=== PATIENT | female | born 1985 | race Caucasian/White ===

== ENCOUNTER → 2018-01-11 | Outpatient (CLI) | payer BC ==
[2018-01-11 13:30] LABS: ABSOLUTE RETIC # 25 10e9/L (24-90); BASOPHILS % (AUTO) 1 % (0-10); EOSINOPHILS % (AUTO) 1 % (0-10); HEMATOCRIT 40 % (35-52); HEMOGLOBIN 13.1 G/DL (11.5-16.0); LYMPHOCYTES # (AUTO) 1.6 X 10^3 (1.0-4.0); LYMPHOCYTES % (AUTO) 29 % (12-44); MEAN CORPUSCULAR HEMOGLOBIN 31 PG (25-34); MEAN CORPUSCULAR HGB CONC 33 G/DL (32-36); MEAN CORPUSCULAR VOLUME 93 FL (80-99); MEAN PLATELET VOLUME 10.3 FL (7.4-10.4); MONOCYTES # (AUTO) 0.4 X 10^3 (0.0-1.0); MONOCYTES % (AUTO) 7 % (0-12); NEUTROPHILS # (AUTO) 3.7 X 10^3 (1.8-7.8); NEUTROPHILS % (AUTO) 64 % (42-75); PLATELET COUNT 220 10^3/uL (130-400); RED BLOOD COUNT 4.26 10^6/uL (4.35-5.85); RED CELL DISTRIBUTION WIDTH 12.3 % (10.0-14.5); RETICULOCYTE % 0.58 % (0.50-2.40); WHITE BLOOD COUNT 5.7 10^3/uL (4.3-11.0)
[2018-01-11 14:08] LABS: BAND NEUTROPHILS 2 %; NEUTROPHILS % (MANUAL) 64 %
[2018-01-11 14:09] LABS: BASOPHILS % (MANUAL) 0 %; EOSINOPHILS % (MANUAL) 3 %; LYMPHOCYTES % (MANUAL) 24 %; MONOCYTES % (MANUAL) 5 %; PLATELET CLUMPS OCCASIONAL; REACTIVE LYMPHOCYTES 2 %
[2018-01-11 14:10] LABS: RBC MORPH NORMAL
== END ==
LOC: LAB 13:20
PROVIDERS: ATTEND Family Medicine
DX: D72.819 Decreased white blood cell count, unspecified (principal)
CPT/HCPCS: 36415; 85007; 85025; 85027; 85045

== ENCOUNTER → 2021-05-03 | Outpatient (CLI) | payer BC ==
--- NOTE | 2021-05-05 08:41 | Diagnostic Imaging Report ---
INDICATION: survey. TECHNIQUE: Multiple real-time grayscale images were obtained over the gravid uterus. COMPARISON: None FINDINGS: There is a single live fetus in the cephalic presentation. heart rate was recorded at 156 bpm. Placenta is anterior. Amniotic fluid volume is normal. Cervical length is 3.6 cm. survey shows kidneys, bladder and stomach to be unremarkable. brain is unremarkable. There is a four-chamber heart. There is a three-vessel cord with normal insertion. spine is unremarkable. Biometrical measurements are as follows: Biparietal 4.66 cm, age 20 weeks 1 days. Head circumference 17.41 cm, age 20 weeks 0 days. Abdominal circumference 14.52 cm, age 19 weeks 6 days. Femur length 3.09 cm, age 19 weeks 5 days. Sonographic estimate age: 20 weeks 0 days. Sonographic estimated date of delivery: 09/20/2021. Estimated Weight: 311 gm (+/- 45 gm). LMP percentile: 32%. heart rate: 156 beats per minute. number: 1 of 1. IMPRESSION: Single live IUP of 20 weeks 0 days gestational age. Estimated date of confinement sonographically is 09/20/2021. Dictated by: Dictated on workstation # [id number]
== END ==
LOC: RAD 12:00 → MERGE 12:00
PROVIDERS: ATTEND Nurse Practitioner Women's Health
DX: Z34.02 Encounter for supervision of normal first pregnancy, second trimester (principal)
CPT/HCPCS: 76805

== ENCOUNTER 2021-09-18 14:15 | Inpatient (IN) | payer BC ==
[2021-09-18] VITALS (8 sets, daily range): BP systolic 94–121; BP diastolic 50–77
[~2021-09-18] VITALS: Ht 162.6 cm; Wt 70.0 kg
[2021-09-18] MEDS ORDERED: NS IV 1000 ML 1,000 ML ONE (19:32)
[2021-09-18] MEDS ORDERED: LIDOCAINE/EPI 2% 1:200,00 (XYLOCAINE) 10 ML VIAL INJ PRN (20:00)
[2021-09-18] MEDS ORDERED: MINERAL OIL 30 ML TOP PRN (20:00)
[2021-09-18] MEDS ORDERED: CATHETER FLUSH 10 ML SYR IV PRN (20:00)
[2021-09-18] MEDS ORDERED: NS IV 1000 ML 1,000 ML IV SCH (20:00)
[2021-09-18] MEDS ORDERED: TERBUTALINE INJ 1 MG/ML (BRETHINE) AMP SC PRN (20:00)
[2021-09-18 20:07] LABS: BILIRUBIN,URINE NEGATIVE (NEGATIVE); CLARITY,URINE CLEAR; COLOR,URINE YELLOW; GLUCOSE, URINE (UA) NEGATIVE (NEGATIVE); KETONES,URINE NEGATIVE (NEGATIVE); LEUKOCYTE ESTERASE ,URINE NEGATIVE (NEGATIVE); NITRITE,URINE NEGATIVE (NEGATIVE); PROTEIN,URINE NEGATIVE (NEGATIVE)
[2021-09-18 20:08] LABS: BASOPHILS % (AUTO) 0 % (0-10); EOSINOPHILS # (AUTO) 0.1 10^3/uL (0.0-0.3); EOSINOPHILS % (AUTO) 1 % (0-10); HEMATOCRIT 35 % (35-52); HEMOGLOBIN 11.7 g/dL (11.5-16.0); LYMPHOCYTES % (AUTO) 25 % (12-44); MEAN CORPUSCULAR HEMOGLOBIN 32 pg (25-34); MEAN CORPUSCULAR HGB CONC 34 g/dL (32-36); MEAN CORPUSCULAR VOLUME 96 fL (80-99); MEAN PLATELET VOLUME 11.9 fL (9.0-12.2); MONOCYTES # (AUTO) 0.6 10^3/uL (0.0-1.0); MONOCYTES % (AUTO) 7 % (0-12); NEUTROPHILS # (AUTO) 5.5 10^3/uL (1.8-7.8); NEUTROPHILS % (AUTO) 67 % (42-75); PLATELET COUNT 208 10^3/uL (130-400); WHITE BLOOD COUNT 8.3 10^3/uL (4.3-11.0)
[2021-09-18 20:16] LABS: BACTERIA,URINE FEW /HPF; WBC,URINE 0-2 /HPF
[2021-09-18] MEDS: D5 LR IV SOLUTION 1,000 ML IV SCH (20:25)
[2021-09-19] VITALS (57 sets, daily range): BP systolic 83–152; BP diastolic 49–75
[2021-09-19] MEDS ORDERED: AMPICILLIN FOR IV USE 2,000 MG in NS (IVPB) 50 ML IV ONE ×2
[2021-09-19] MEDS: AMPICILLIN FOR IV USE 1,000 MG in NS (IVPB) 50 ML IV SCH ×3 (04:11→11:59)
[2021-09-19] MEDS: D5 LR IV SOLUTION 1,000 ML IV SCH ×2 (04:16→10:36)
[2021-09-19] MEDS ORDERED: LACTATED RINGERS 1,000 ML IV ONE (07:30)
[2021-09-19] MEDS ORDERED: HYDROmorphone 2 MG/ML VIAL (DILAUDID) IV ONE (07:45)
[2021-09-19] MEDS ORDERED: fentaNYL 2 mcg/ml BUPIVA 0.125 100 ML ONE (07:57)
[2021-09-19] MEDS ORDERED: fentaNYL INJ 100 MCG/2 ML AMP ONE (08:47)
[2021-09-19] MEDS ORDERED: BUPIVACAINE 0.25% 30 ML (SENSORCAINE) VIAL ONE (08:47)
--- NOTE | 2021-09-19 09:07 | History & Physical-OB ---
OB - Chief Complaint & HPI Date/Time Date of Admission: Date of Admission: Sep 18, 2021 at 19:06 Date seen by a Provider: Sep 19, 2021 Time Seen by a Provider: 08:00 Chief Complaint/History OB-Reason for Admission/Chief: Induction of Labor Hx : 1 Hx Para: 0 Expected Date of Delivery: Sep 20, 2021 Gestational Age in Weeks: 39 Gestational Age in Days: 6 Indication for induction: maternal discomfort Admission Nurse Assessment Rev: Yes History of Labs O pos Antibody neg RI RPR NR HBsAg NR HIV NR GC neg GBS pos Allergies and Home Medications Allergies Coded Allergies: No Known Drug Allergies (Unverified , 09/18/21) Patient Home Medication List Home Medication List Reviewed: Yes OB - History Hx of Present Care: Yes Ultrasounds: Normal mid trimester US Obstetrical Complications: None Medical Complications: None Patient Past Medical History n/a Immunizations COVID19 Vaccine [place]/Woman: Moderna OB - Admission Exam Physical Exam Vitals: Vital Signs 09/19/21 04:07 Temp 36.5 Pulse 53 Resp 18 B/P (MAP) 94/50 (65) Pulse Ox 98 O2 Delivery Room Air HEENT: NCAT Heart: Rhythm Normal Lungs: Clear Abdomen: Gravid Extremities: Normal Reflexes: Normal Cervical Dilatation: 1cm Effacement: 100% Station: 0 Membranes: Intact Heart Rate: 130's Accelerations: Accelerations Present Decelerations: No Decelerations Short Term Variability: Present Oriental Medicine Practitioner Variability: Average (6-25) Contractions on Admission: 6-10 Minutes Apart Intensity: Mild [place] Scoring Tool (Modified) Dilation (cm): 1-2cm (1) Effacement (%): 80-100% (3) Descent/Station: -1,0 (2) Cervix Consistency: Soft (2) Cervix Position: Anterior (2) Subtract 1 point for: Nulliparity (-1) Greenfield Score: 9 Labs Laboratory Tests Test 09/18/21 19:25 09/18/21 20:03 Range/Units White Blood Count 8.3 4.3-11.0 10^3/uL Red Blood Count 3.61 L 3.80-5.11 10^6/uL Hemoglobin 11.7 11.5-16.0 g/dL Hematocrit 35 35-52 % Mean Corpuscular Volume 96 80-99 fL Mean Corpuscular Hemoglobin 32 25-34 pg Mean Corpuscular Hemoglobin Concent 34 32-36 g/dL Red Cell Distribution Width 12.7 10.0-14.5 % Platelet Count 208 130-400 10^3/uL Mean Platelet Volume 11.9 9.0-12.2 fL Immature Granulocyte % (Auto) 1 % Neutrophils (%) (Auto) 67 42-75 % Lymphocytes (%) (Auto) 25 12-44 % Monocytes (%) (Auto) 7 0-12 % Eosinophils (%) (Auto) 1 0-10 % Basophils (%) (Auto) 0 0-10 % Neutrophils # (Auto) 5.5 1.8-7.8 10^3/uL Lymphocytes # (Auto) 2.0 1.0-4.0 10^3/uL Monocytes # (Auto) 0.6 0.0-1.0 10^3/uL Eosinophils # (Auto) 0.1 0.0-0.3 10^3/uL Basophils # (Auto) 0.0 0.0-0.1 10^3/uL Immature Granulocyte # (Auto) 0.0 0.0-0.1 10^3/uL Urine Color YELLOW Urine Clarity CLEAR Urine pH 7.0 5-9 Urine Specific [place] 1.020 1.016-1.022 Urine Protein NEGATIVE NEGATIVE Urine Glucose (UA) NEGATIVE NEGATIVE Urine Ketones NEGATIVE NEGATIVE Urine Nitrite NEGATIVE NEGATIVE Urine Bilirubin NEGATIVE NEGATIVE Urine Urobilinogen 0.2 < = 1.0 MG/DL Urine Leukocyte Esterase NEGATIVE NEGATIVE Urine RBC (Auto) NEGATIVE NEGATIVE Urine RBC NONE /HPF Urine WBC 0-2 /HPF Urine Squamous Epithelial Cells NONE /HPF Urine Renal Epithelial Cells NONE /HPF Urine Crystals NONE /LPF Urine Bacteria FEW H /HPF Urine Casts NONE /LPF Urine Mucus NEGATIVE /LPF Urine Culture Indicated NO OB - Assessment/Plan/Diagnosis Assessment Assessment: induction of labor Admission Dx 36 yo @ 39 weeks AMA GBS pos Admission Status: Inpatient Order (span 2 midnights) Reason for Inpatient Admission: IOL at 39 weeks Plan Plan: Induction Induction Method: per Misoprostol Protocol JANA PICHARDO DO Sep 19, 2021 09:07
[2021-09-19] MEDS ORDERED: ONDANSETRON 4 MG/2 ML (SDV) Z0FRAN IV PRN (09:45)
[2021-09-19] MEDS ORDERED: diphenhydrAMINE 50 MG/ML INJ (BENADRYL) IV PRN (09:45)
[2021-09-19] MEDS ORDERED: METOCLOPRAMIDE INJ 10 MG/2 ML (REGLAN) IV PRN (09:45)
[2021-09-19] MEDS ORDERED: NALOXONE 0.4 MG/ML 1 ML (NARCAN) VIAL IV PRN ×3 (09:45→14:30)
[2021-09-19] MEDS ORDERED: LACTATED RINGERS 1,000 ML IV SCH (09:45)
[2021-09-19] MEDS ORDERED: EPIDURAL (fentaNYL 2 MCG/ML BUPIVA 0.125%)100 ML BAG EPI PRN (09:45)
[2021-09-19] MEDS ORDERED: OXYTOCIN PRE-MIX DRIP 500 ML IV ONE ×2 (12:49→14:37)
[2021-09-19] MEDS ORDERED: MEASLES,MUMPS,RUBELLA 1 EA INJ SQ ONE (14:30)
[2021-09-19] MEDS ORDERED: TETANUS,DIPTH,PERTUSS P/F (BOOSTRIX) 0.5 ML VIAL IM ONE (14:30)
[2021-09-19] MEDS ORDERED: HYDROcodone/APAP 5 MG/325 MG (LORTAB) TAB PO PRN (14:30)
--- NOTE | 2021-09-19 14:30 | OB Labor & Delivery Record ---
L&D History Date of Service Date of Service: Sep 19, 2021 History Expected Date of Delivery: Sep 20, 2021 Gestational Age in Weeks: 39 Hx : 1 Hx Para: 0 Complications Events: Routine care Operative Indications (Cesarea: N/A-Vaginal Delivery Intrapartal Events: None, Ineffective Pushing L&D Stage1 Stage One Onset of Labor - Date: Sep 19, 2021 Monitors and Tracing Monitor Mode: External Heart Rate: 140 Monitor Accelerations: Uniform Monitor Decelerations: Variable Station: 0 Alf Variability: Average (6-10) Short Term Variability: Present Presentation: Vertex Vital Signs VS - Last 72 Hours, by Label 09/18/21 09/18/21 09/18/21 09/18/21 19:26 19:26 20:37 21:07 Temp 36.3 36.3 Pulse 71 71 70 63 Resp 18 18 18 18 B/P (MAP) 112/64 (80) 114/58 (76) 116/64 (81) Pulse Ox 98 98 O2 Delivery Room Air Room Air Room Air Room Air 09/18/21 09/18/21 09/18/21 09/18/21 21:37 22:08 22:38 23:07 Pulse 72 56 57 68 Resp 18 18 18 18 B/P (MAP) 114/60 (78) 115/77 (90) 94/50 (65) 98/54 (69) O2 Delivery Room Air Room Air Room Air Room Air 09/18/21 09/19/21 09/19/21 09/19/21 23:37 00:07 00:37 01:07 Temp 36.4 Pulse 54 59 56 51 Resp 18 18 18 18 B/P (MAP) 121/72 (88) 112/70 (84) 96/55 (69) 103/59 (74) Pulse Ox 99 O2 Delivery Room Air Room Air Room Air Room Air 09/19/21 09/19/21 09/19/21 09/19/21 01:38 02:07 02:37 03:08 Pulse 51 47 52 55 Resp 18 18 18 18 B/P (MAP) 94/50 (65) 113/64 (80) 108/70 (83) 103/57 (72) O2 Delivery Room Air Room Air Room Air Room Air 09/19/21 09/19/21 09/19/2109/19/22 03:37 04:07 07:07 07:30 Temp 36.5 36.7 Pulse 50 53 60 70 Resp 18 18 18 18 B/P (MAP) 105/69 (81) 94/50 (65) 102/62 (75) Pulse Ox 98 97 O2 Delivery Room Air Room Air Room Air Room Air 09/19/21 09/19/21 09/19/21 09/19/21 07:38 08:07 08:36 09:00 Pulse 58 55 60 58 Resp 18 18 18 18 B/P (MAP) 128/63 (84) 106/55 (72) 111/57 (75) 152/75 (100) Pulse Ox 97 100 100 99 O2 Delivery Room Air Room Air Room Air Room Air Rupture of Membranes Spontaneous Ruture of Membrane: No Amniotic Membrane Rupture Time: 717 Amniotic Membrane Fluid Desc.: Clear Vaginal Bleeding Description: Normal Show Induction/Anesthesia Epidural Cath Placement - Time: 0900 Progress/Notes Patient admitted last night for elective 39 week IOL. She received misoprostol 3x doses overnight 100mcg loading and 50 q 4. She had AROM performed this AM. Followed by a regular contraction pattern. She received an epidural shortly after, and progressed with no further augmentation to complete and + 2 station. L&D Stage2 Stage Two Stage II Date: Sep 19, 2021 Monitors and Tracing Monitor Mode: External Heart Rate: 140 Monitor Accelerations: Uniform Monitor Decelerations: Variable Cottonseed Meat Presser Variability: Average (6-10) Short Term Variability: Present Position: Right Occiput Anterior Presentation: Vertex Signs of Distress by FHT Signs of Distress Due to recurrent deep heart rate decelerations, and ineffective pushing due to complete block with epidural vacuum extraction was implemented. Kiwi vacuum placed on saginal suture line at flexion point. With next maternal push gentle decent and extension are performed over RML episiotomy. Where as the head is delivered and suction is released. The remainder of the delivery was unremarkable. Cord Descript/Complications Cord Vessel Description: 3 Vessels Delivery Type Delivery Method: Low Vacuum Extraction Anterior Shoulder: Left Episiotomy/Perineal Laceration Laceraction(s)/Extensions: Yes Episiotomy Description: Right Mediolateral Degree (describe repair) RML repaired using 3-0 rapide and 2-0 vicryl suture in usual fashion. Condition of Infant Delivery 1 minute Comment: 8 5 minute Comment: 9 Notes Live male infant weight pending. Condition of Condition of Infant: Living Exam: No Observed Abnormalities Resuscitation Resuscitation: N/A - Spontaneous Resp L&D Stage3 Stage Three Stage III Date: Sep 19, 2021 Pictocin Pitocin Administration Comment: 30 mu wide open after delivery of placenta Placenta Delivery Placenta Delivery: Spontaneous Delivery Summary Summary Estimated blood loss (mL): 300 Attending at delivery: Jana Pichardo DO Condition of Delivery Examined: Cervix Examined, Uterus Explored Post Hemorrhage: No Condition of Mother stable Condition of Infant (s) stable JANA PICHARDO DO Sep 19, 2021 14:30
[2021-09-19] MEDS: OXYTOCIN PRE-MIX DRIP 500 ML IV SCH ×2 (14:40→23:19)
[2021-09-19] MEDS: IBUPROFEN 600 MG (MOTRIN) TAB PO SCH ×2 (15:13→21:27)
[2021-09-19] MEDS: WITCH HAZEL(TUCKS) 40 EA JAR TOP PRN ×2 (15:13→15:31)
[2021-09-19] MEDS: BENZOCAINE/MENTHOL (DERMOPLAST) 56 ML CAN TP PRN ×2 (15:14→15:32)
[2021-09-19] MEDS: DIBUCAINE 1% OINTMENT 30 GM TUBE TOP PRN (15:31)
[2021-09-19] MEDS: DOCUSATE SODIUM 100 MG (COLACE) CAP PO SCH (21:27)
[2021-09-19] MEDS: CATHETER FLUSH 10 ML SYR IV SCH (22:01)
[2021-09-20 00:21] VITALS: BP 125/67
[2021-09-20 03:56] VITALS: BP 109/62
[2021-09-20] MEDS: IBUPROFEN 600 MG (MOTRIN) TAB PO SCH ×4 (03:56→21:23)
[2021-09-20 05:51] LABS: BASOPHILS % (AUTO) 0 % (0-10); EOSINOPHILS % (AUTO) 0 % (0-10); HEMATOCRIT 32 % (35-52); HEMOGLOBIN 10.7 g/dL (11.5-16.0); LYMPHOCYTES # (AUTO) 1.7 10^3/uL (1.0-4.0); LYMPHOCYTES % (AUTO) 15 % (12-44); MEAN CORPUSCULAR HEMOGLOBIN 33 pg (25-34); MEAN CORPUSCULAR HGB CONC 33 g/dL (32-36); MEAN CORPUSCULAR VOLUME 98 fL (80-99); MEAN PLATELET VOLUME 11.1 fL (9.0-12.2); MONOCYTES # (AUTO) 0.5 10^3/uL (0.0-1.0); MONOCYTES % (AUTO) 5 % (0-12); NEUTROPHILS # (AUTO) 9.2 10^3/uL (1.8-7.8); NEUTROPHILS % (AUTO) 80 % (42-75); PLATELET COUNT 155 10^3/uL (130-400); WHITE BLOOD COUNT 11.5 10^3/uL (4.3-11.0)
[2021-09-20] MEDS: CATHETER FLUSH 10 ML SYR IV SCH (06:53)
[2021-09-20 08:15] VITALS: BP 122/67
--- NOTE | 2021-09-20 08:17 | Anesthesia-Regional Post-Op ---
Regional Patient Condition Mental Status: Alert, Oriented x3 Circulation: Same as Pre-Op Headache: Absent Sensation: Full Recovery Motor Block: Absent Post Op Complications Complications None Follow Up Care/Instructions Patient Instructions None needed. Anesthesia/Patient Condition Patient is doing well, no complaints, stable vital signs, no apparent adverse anesthesia problems. No complications reported per nursing. [place] [facility] Yes SERJIO OLIVAS CRNA Sep 20, 2021 08:17
[2021-09-20] MEDS: DOCUSATE SODIUM 100 MG (COLACE) CAP PO SCH ×2 (08:21→21:23)
[2021-09-20] MEDS: PRENATAL VITAMIN 1 EA TAB PO SCH (08:21)
[2021-09-20] MEDS: FERROUS SULF 325 MG (IRON) TAB PO SCH (08:21)
--- NOTE | 2021-09-20 10:13 | Postpartum Progress Note ---
Note Note Day # 1 Subjective: Patient is without complaints. Ambulating, voiding. Tolerating a regular diet without nausea or vomiting. Normal lochia. Pain is well controlled with oral pain medications. Physical Exam: General - Alert and oriented, no apparent distress Abdomen - Soft, appropriately tender to palpation, non-distended, fundus firm at umbilicus Extremities - no edema, negative Aaron's bilaterally Assessment: Post- day # 1, status post vaginal delivery. Recovering well, hemodynamically stable Acute blood loss anemia Plan: Routine care. Encourage breast feeding. Encourage ambulation. Ferrous sulfate supplementation. Plan for discharge tomorrow Vitals - Labs Vital Signs - I&O Vital Signs Date Time Temp Pulse Resp B/P (MAP) Pulse Ox O2 Delivery O2 Flow Rate FiO2 09/20/21 08:15 36.6 64 18 122/67 (85) 99 Room Air 09/20/21 03:56 36.5 68 18 109/62 (78) 100 Room Air 09/20/21 00:21 36.5 69 18 125/67 (86) 97 Room Air 09/19/21 21:27 36.3 67 18 118/69 (85) 99 Room Air 09/19/21 15:45 83 18 127/64 (85) Simple Mask 09/19/21 15:15 70 18 116/57 (76) Room Air 09/19/21 15:00 80 18 105/59 (74) Room Air 09/19/21 14:45 77 18 121/58 (79) Room Air 09/19/21 14:00 90 18 90/55 (67) Room Air 09/19/21 13:45 86 18 108/55 (72) OxyMask 09/19/21 13:30 92 18 99/51 (67) Non Rebreather 09/19/21 13:15 86 18 107/57 (74) Non Rebreather 09/19/21 13:00 82 18 109/56 (73) Non Rebreather 09/19/21 12:45 92 18 83/52 (62) 100 Room Air 09/19/21 12:30 59 18 99/54 (69) 99 Room Air 09/19/21 12:15 67 18 99/58 (72) 99 Room Air 09/19/21 12:00 36.4 56 18 101/56 (71) 99 Room Air 09/19/21 11:45 57 18 104/59 (74) 99 Room Air 09/19/21 11:30 63 18 122/52 (75) 100 Room Air 09/19/21 11:15 60 18 110/59 (76) 100 Room Air 09/19/21 11:00 53 18 105/59 (74) 98 Room Air 09/19/21 10:45 59 18 117/49 (71) 98 Room Air 09/19/21 10:30 36.4 60 18 100/59 (73) 99 Room Air 09/19/21 10:25 57 18 104/59 (74) 98 Room Air 09/19/21 10:20 56 18 105/56 (72) 97 Room Air 09/19/21 10:15 61 18 102/54 (70) 98 Room Air 09/19/21 10:10 55 18 104/57 (73) 97 Room Air 09/19/21 10:00 55 18 101/56 (71) 98 Room Air 09/19/21 09:55 36.6 52 18 104/54 (71) 98 Room Air 09/19/21 09:49 82 18 95/53 (67) 98 Room Air I & O 09/20/21 07:00 Intake Total 4100 ml Output Total 400 ml Balance 3700 ml Labs Laboratory Tests 09/20/21 05:34: White Blood Count 11.5H, Red Blood Count 3.29L, Hemoglobin 10.7L, Hematocrit 32L , Mean Corpuscular Volume 98, Mean Corpuscular Hemoglobin 33, Mean Corpuscular Hemoglobin Concent 33, Red Cell Distribution Width 12.7, Platelet Count 155, Mean Platelet Volume 11.1, Immature Granulocyte % (Auto) 0, Neutrophils (%) (Auto) 80H, Lymphocytes (%) (Auto) 15, Monocytes (%) (Auto) 5, Eosinophils (%) (Auto) 0, Basophils (%) (Auto) 0, Neutrophils # (Auto) 9.2H, Lymphocytes # (Auto) 1.7, Monocytes # (Auto) 0.5, Eosinophils # (Auto) 0.0, Basophils # (Auto) 0.0, Immature Granulocyte # (Auto) 0.1 GASTON CROWDER APRN Sep 20, 2021 10:13
[2021-09-20 12:45] VITALS: BP 128/69
[2021-09-20 16:30] VITALS: BP 118/67
[2021-09-20 21:23] VITALS: BP 110/68
[2021-09-21 03:00] VITALS: BP 105/60
[2021-09-21] MEDS: IBUPROFEN 600 MG (MOTRIN) TAB PO SCH ×2 (03:01→08:29)
[2021-09-21] MEDS: PRENATAL VITAMIN 1 EA TAB PO SCH (06:28)
[2021-09-21] MEDS: DOCUSATE SODIUM 100 MG (COLACE) CAP PO SCH (08:29)
[2021-09-21] MEDS: FERROUS SULF 325 MG (IRON) TAB PO SCH (08:29)
[2021-09-21 08:30] VITALS: BP 128/60
[2021-09-21] MEDS: DIBUCAINE 1% OINTMENT 30 GM TUBE TOP PRN (08:47)
--- NOTE | 2021-09-21 10:15 | Postpartum Progress Note ---
Note Note Day # 2 Subjective: Patient is without complaints. Ambulating, voiding. Tolerating a regular diet without nausea or vomiting. Normal lochia. Pain is well controlled with oral pain medications. Physical Exam: General - Alert and oriented, no apparent distress Abdomen - Soft, appropriately tender to palpation, non-distended, fundus firm at umbilicus Extremities - no edema, negative Aaron's bilaterally Assessment: Post- day # 2, status post vaginal delivery. Recovering well, hemodynamically stable Acute blood loss anemia Plan: Routine care. Encourage breast feeding. Encourage ambulation. Ferrous sulfate supplementation. Plan for discharge today Vitals - Labs Vital Signs - I&O Vital Signs Date Time Temp Pulse Resp B/P (MAP) Pulse Ox O2 Delivery O2 Flow Rate FiO2 09/21/21 08:30 36.6 61 18 128/60 (82) 99 Room Air 09/21/21 03:00 36.1 64 18 105/60 (75) 99 Room Air 09/20/21 21:23 36.1 61 18 110/68 (82) 99 Room Air 09/20/21 16:30 36.7 64 18 118/67 (84) 100 Room Air 09/20/21 12:45 36.8 63 18 128/69 (88) 99 Room Air GASTON CROWDER DIRECTOR OF USER EXPERIENCE Sep 21, 2021 10:15
[2021-09-21] MEDS ORDERED: DOCU100C37 PO (10:19)
[2021-09-21] MEDS ORDERED: FERR325T24 PO (10:19)
[2021-09-21] MEDS ORDERED: BENZ78AE5 TP (10:19)
[2021-09-21] MEDS ORDERED: IBUP-844 PO (10:19)
[2021-09-21] MEDS ORDERED: DIBU30OI TOP (10:19)
[2021-09-21] MEDS ORDERED: ACHD5005 PO (10:19)
--- NOTE | 2021-09-21 10:20 | Discharge Inst-Women's Service ---
Discharge Inst-Women's Serv Depart Medication/Instructions New, Converted or Re-Newed RX: Transmitted to Pharmacy Consults/Follow Up Additional Follow Up: Yes (6wk appt) Activity Activity: Activity as Tolerated Driving Instructions: No Driving for 1 Week NO SMOKING: NO SMOKING Nothing Inside Vagina: No Douching, No [place], No Tampons Diet Discharge Diet: No Restrictions Symptoms to Report to : Pain Increased, Fever Over 101 Degrees F, Vaginal Bleeding Increase For Any Problems or Questions: Contact Your Physician GASTON CROWDER AUTO CLUTCH REBUILDER Sep 21, 2021 10:20
[2021-09-21 14:00] VITALS: BP 128/60
== END 2021-09-21 14:00 | disposition home or self-care (01) | DRG 806 ==
LOC: LDRP 19:06
PROVIDERS: ADMIT Obstetrics & Gynecology; ATTEND Obstetrics & Gynecology
PROC: 3E0DXGC Introduction of Other Therapeutic Substance into Mouth and Pharynx, External Approach (ICD-10-PCS; 2021-09-18)
PROC: 10D07Z6 Extraction of Products of Conception, Vacuum, Via Natural or Artificial Opening (ICD-10-PCS; principal; 2021-09-19)
PROC: 0W8NXZZ Division of Female Perineum, External Approach (ICD-10-PCS; 2021-09-19)
DX: O99.824 Streptococcus B carrier state complicating childbirth (principal); D62 Acute posthemorrhagic anemia; Z37.0 Single live birth; O76 Abnormality in fetal heart rate and rhythm complicating labor and delivery; O90.81 Anemia of the puerperium; Z3A.39 39 weeks gestation of pregnancy
CPT/HCPCS: 36415; 81000; 85025; 86850; 86900; 86901